=== PATIENT | male | born 1990 | race Caucasian/White ===

== ENCOUNTER 2020-02-06 19:30 | Emergency (ER) | payer OTHER ==
[~2020-02-06 19:30] MED LIST: CELEBREX100 MG PO; VISTARIL 50 MG50 MG PO
[2020-02-06] MEDS ORDERED: ZOFRAN ODT 4 MG4 MG PO (23:32)
[2020-02-06] MEDS ORDERED: KEFLEX CAP 500500 MG PO (23:32)
[2020-02-06] MEDS ORDERED: NORCO 5-325 TA1 EACH PO (23:32)
== END 2020-02-06 19:49 | disposition left against medical advice (07) ==
LOC: ER1 19:30
DX: Z53.21 Procedure and treatment not carried out due to patient leaving prior to being seen by health care provider (principal)

== ENCOUNTER 2020-02-06 22:08 | Emergency (ER) | payer OTHER ==
[2020-02-06] MEDS ORDERED: KEFLEX CAP 500500 MG PO (23:32)
[2020-02-06] MEDS ORDERED: NORCO 5-325 TA1 EACH PO (23:32)
[2020-02-06] MEDS ORDERED: ZOFRAN ODT 4 MG4 MG PO (23:32)
== END 2020-02-07 00:33 | disposition home or self-care (01) ==
LOC: ER1 22:08
DX: S61.132A Puncture wound without foreign body of left thumb with damage to nail, initial encounter (principal); I10 Essential (primary) hypertension; F17.210 Nicotine dependence, cigarettes, uncomplicated; W29.8XXA Contact with other powered hand tools and household machinery, initial encounter; Y92.009 Unspecified place in unspecified non-institutional (private) residence as the place of occurrence of the external cause
CPT/HCPCS: 11740; 73130; 96372; 99283; J1885

== ENCOUNTER 2020-04-14 20:53 | Emergency (ER) | payer OTHER ==
[~2020-04-14 20:53] MED LIST changes: +KEFLEX CAP 500500 MG PO; +NORCO 5-325 TA1 EACH PO; +ZOFRAN ODT 4 MG4 MG PO
[2020-04-14 22:40] LABS: HEMOGLOBIN 14.1 gm/dl (14.0-17.5); RED BLOOD COUNT 4.78 M/UL (4.20-5.50); WHITE BLOOD COUNT 6.5 K/UL (4.5-11.0)
[2020-04-14 23:00] LABS: BUN/CREATININE RATIO 15 (0-10)
== END 2020-04-15 02:22 | disposition home or self-care (01) ==
LOC: ER1 20:53
PROVIDERS: Emergency Medicine
DX: R60.0 Localized edema (principal); F17.200 Nicotine dependence, unspecified, uncomplicated; Z20.822 Contact with and (suspected) exposure to COVID-19
CPT/HCPCS: 71045; 80053; 81001; 82550; 82553; 83605; 83690; 83880; 84484; 85025; 85610; 85730; 93005; 96372; 99285; Q9967; U0002

== ENCOUNTER → 2020-04-16 | Outpatient (CLI) | payer OTHER ==
[~2020-04-16] MED LIST changes: +CARDIZEM 30MG T30 MG PO; +GABAPENTIN400 MG PO; +HYDROCHLOROTH12.5 MG PO; +K-TAB ER10 MEQ PO; +LASIX40 MG PO; +LISINOPRIL5 MG PO; +METOPROLOL SUCC25 MG PO; +OMEPRAZOLE20 M1 PO; +PROVENTIL HFA6.7 GM INH
== END ==
LOC: KOH-I 15:30
DX: R60.0 Localized edema (principal)
CPT/HCPCS: 93970

== ENCOUNTER 2020-08-07 01:41 | Observation (INO) | payer OTHER ==
[~2020-08-07] VITALS: Ht 177.8 cm; Wt 104.3 kg
[~2020-08-07 01:41] MED LIST changes: -CARDIZEM 30MG T30 MG PO; -GABAPENTIN400 MG PO; -HYDROCHLOROTH12.5 MG PO; -K-TAB ER10 MEQ PO; -LASIX40 MG PO; -LISINOPRIL5 MG PO; -METOPROLOL SUCC25 MG PO; -OMEPRAZOLE20 M1 PO; -PROVENTIL HFA6.7 GM INH
[2020-08-07 04:30] LABS: HEMOGLOBIN 12.6 gm/dl (14.0-17.5); RED BLOOD COUNT 4.26 M/UL (4.20-5.50); WHITE BLOOD COUNT 6.2 K/UL (4.5-11.0)
[2020-08-07 04:54] LABS: BUN/CREATININE RATIO 18 (0-10)
[2020-08-07] MEDS ORDERED: PROVENTIL HFA6.7 GM INH (09:54)
[2020-08-07] MEDS ORDERED: GABAPENTIN400 MG PO (09:54)
[2020-08-07] MEDS ORDERED: CARDIZEM 30MG T30 MG PO (09:55)
[2020-08-07] MEDS ORDERED: OMEPRAZOLE20 M1 PO (09:55)
[2020-08-07] MEDS ORDERED: HYDROCHLOROTH12.5 MG PO (09:56)
[2020-08-08 11:13] LABS: HEMOGLOBIN 12.8 gm/dl (14.0-17.5); RED BLOOD COUNT 4.32 M/UL (4.20-5.50); WHITE BLOOD COUNT 7.1 K/UL (4.5-11.0)
[2020-08-09 09:13] LABS: HBSAG SCREEN Negative (Negative); HEP A AB, IGM Negative (Negative); HEP B CORE AB, IGM Negative (Negative); HEP C VIRUS AB 0.1 (0.0-0.9)
[2020-08-09 09:50] LABS: BUN/CREATININE RATIO 15 (0-10)
[2020-08-10] MEDS ORDERED: K-TAB ER10 MEQ PO (10:26)
[2020-08-10] MEDS ORDERED: LASIX40 MG PO (10:26)
[2020-08-10] MEDS ORDERED: LISINOPRIL5 MG PO (10:26)
[2020-08-10] MEDS ORDERED: METOPROLOL SUCC25 MG PO (10:43)
[2020-08-12 15:10] LABS: FINAL INTERPRETATION Negative (.); HIV 1 AB Negative (Negative); HIV 2 AB Negative (Negative)
== END 2020-08-10 13:50 | disposition home or self-care (01) ==
LOC: ER1 01:41 → MED SURG 4 09:12 → CDU 09:12 → MED SURG 4 14:07
PROVIDERS: Physician Assistant; ADMIT Internal Medicine
DX: R60.0 Localized edema (principal); I10 Essential (primary) hypertension; F17.210 Nicotine dependence, cigarettes, uncomplicated; E66.9 Obesity, unspecified; Z68.33 Body mass index [BMI] 33.0-33.9, adult; Z20.822 Contact with and (suspected) exposure to COVID-19; R91.8 Other nonspecific abnormal finding of lung field; R59.0 Localized enlarged lymph nodes; I07.1 Rheumatic tricuspid insufficiency
CPT/HCPCS: ECHO; 36415; 71045; 80053; 80074; 80307; 81001; 82550; 82553; 82570; 83036; 83874; 83880; 84156; 84484; 85025; 85027; 85610; 85730; 86701; 86702; 93005; 93306; 96374; 96376; 99285; G0378; J0696; J1940; Q9967; U0002